=== PATIENT | female | born 1975 | race Caucasian/White ===

== ENCOUNTER 2020-04-17 18:19 | Emergency (ER) | payer OTHER ==
--- NOTE | 2020-04-17 18:47 | ER Document Report ---
ED Extremity Problem, Lower - General Chief Complaint: Foot Pain Stated Complaint: LEFT FOOT PAIN Time Seen by Provider: 04/17/20 18:34 Primary Care Provider: ML PARKS MD [ACTIVE STAFF] - Follow up as needed - [facility] Notes: Patient is a 44 y/o female who presents with left toe pain that began just prior to arrival. Patient states she caught her left pinky toe on wooden pet steps which caused her toe to pull back. She reports pain to her left pinky toe but denies any other injury or pain. Patient denies any medical problems. Patient has not taken anything for pain relief. - Related Data Allergies/Adverse Reactions: Penicillins Allergy (Verified 04/17/20 20:16) Past Medical History - General Information source: Patient - Social History Smoking Status: Unknown if Ever Smoked Family History: Reviewed & Not Pertinent Review of Systems - Review of Systems Constitutional: No symptoms reported EENT: No symptoms reported Cardiovascular: No symptoms reported Respiratory: No symptoms reported Gastrointestinal: No symptoms reported Genitourinary: No symptoms reported Female Genitourinary: No symptoms reported Musculoskeletal: See HPI Skin: No symptoms reported Hematologic/Lymphatic: No symptoms reported Neurological/Psychological: No symptoms reported Physical Exam - Vital signs Vitals: Temp Pulse Resp BP Pulse Ox 98.0 F 112 H 18 147/89 H 98 04/17/20 18:30 04/17/20 18:30 04/17/20 18:30 04/17/20 18:30 04/17/20 18:30 - Notes Notes: PHYSICAL EXAMINATION: GENERAL: Well-appearing, well-nourished and in no acute distress. HEAD: Atraumatic, normocephalic. EYES: sclera anicteric, conjunctiva are normal. ENT: Moist mucous membranes. NECK: Normal range of motion LUNGS: Normal work of breathing HEART: 2+ radial pulses bilaterally EXTREMITIES: Tenderness to lateral left pinky toe. ROM limited secondary to pain. No visible deformity. 2+ DP and PT pulses on the left side. No pitting or edema. No cyanosis. NEUROLOGICAL: No focal neurological deficits. Moves all extremities spontaneously and on command. PSYCH: Normal mood, normal affect. SKIN: Warm, Dry, normal turgor, no rashes or lesions noted. Course - Re-evaluation Re-evalutation: Patient is a 44-year-old female who presents with left pinky toe pain after getting it caught on something just prior to arrival. Patient is tachycardic with a heart rate of 112 and hypertensive with a BP of 147/89. On exam, tenderness to lateral left pinky toe. ROM limited secondary to pain. No visible deformity. Left foot XR shows mild laterally angulated 5th toe proximal phalanx distal shaft fracture. 04/17/20 19:[address] Parks, orthopedic surgeon on-call, who recommends amira taping the toe and having the patient follow up in office. I informed the patient of my conversation with Dr. Parks and they are in agreement with the plan. Patient's left toe amira taped in the ED and patient provided with crutches. Return precautions and follow up instructions given. Patient will be discharged home. - Vital Signs Vital signs: Temp Pulse Resp BP Pulse Ox 98.3 F 99 18 139/78 H 100 04/17/20 20:30 04/17/20 20:30 04/17/20 20:30 04/17/20 20:30 04/17/20 20:30 - Laboratory Results Critical Laboratory Results Reviewed: No Critical Results - Radiology Results Radiology Results Interpreted: Foot X-Ray 04/17/20 18:34 IMPRESSION: Mild laterally angulated 5th toe proximal phalanx distal shaft fracture. Critical Radiology Results Reviewed: No Critical Results Procedures - Immobilization Left Proximal Toe 5th digit Pre-Proc Neuro Vasc Exam: Normal Immobilizer type: Crutches, Other - Amira tape Performed by: PCT Discharge - Discharge Clinical Impression: Fracture of fifth toe, left, closed Qualifiers: Encounter type: initial encounter Qualified Code(s): S92.502A - Displaced unspecified fracture of left lesser toe(s), initial encounter for closed fracture Condition: Stable Disposition: HOME, SELF-CARE Additional Instructions: Fractured Toe You have fractured your toe. Although this fracture doesn't need a cast or splint, emergency evaluation was needed to assess the straightness of the bones and joints. Reduction ("setting") is necessary for toe fractures which are supervisor microbiology technologists oked or twisted. A toe fracture will heal in about three weeks. Usually, the fractured toe is taped to the next toe. The second toe acts as a moving splint to protect the broken one. Ice and elevation help during the first 48 hours. You may need crutches at first if walking is painful. When you begin walking, be careful NOT to do things that hurt. If weight bearing is not comfortable within a few days, you may require a special shoe, walking boot, or cast. Call the doctor or return at once if severe swelling, severe pain, or numbness develop in the toe, or if you suspect you may have re-injured it. Referrals: ML PARKS MD [ACTIVE STAFF] - Follow up as needed
--- NOTE | 2020-04-17 19:16 | RADIOLOGY REPORT (SQ) ---
EXAM DESCRIPTION: FOOT LEFT COMPLETE IMAGES COMPLETED DATE/TIME: 04/17/2020 7:05 pm REASON FOR STUDY: left foot injury COMPARISON: None. NUMBER OF VIEWS: Three views. TECHNIQUE: AP, lateral and oblique radiographic images acquired of the left foot. LIMITATIONS: None. FINDINGS: MINERALIZATION: Normal. BONES: 5th toe proximal phalanx distal shaft oblique fracture with mild lateral angulation. Calcanea l Achilles and plantar at the. Cortical thickening and undulation of the 3rd and 4th metatarsal shaf ts which may indicate occult stress changes. JOINTS: No effusions. SOFT TISSUES: No soft tissue swelling. No foreign body. OTHER: No other significant finding. IMPRESSION: Mild laterally angulated 5th toe proximal phalanx distal shaft fracture. TECHNICAL DOCUMENTATION: JOB ID: [id number] 2010 [employer]- All Rights Reserved Reading location - IP/workstation name: [email or web address]
[2020-04-17 20:31] VITALS: BP 139/78
== END 2020-04-17 20:30 | disposition home or self-care (01) ==
LOC: ER 18:19
DX: S92.502A Displaced unspecified fracture of left lesser toe(s), initial encounter for closed fracture (principal); X50.0XXA Overexertion from strenuous movement or load, initial encounter; Y92.009 Unspecified place in unspecified non-institutional (private) residence as the place of occurrence of the external cause; I10 Essential (primary) hypertension; Z88.0 Allergy status to penicillin
CPT/HCPCS: 99283